=== PATIENT | female | born 1935 | race African-American/Black ===

== ENCOUNTER 2021-01-04 15:12 | Outpatient (CLI) | payer MEDICARE ==
[2021-01-08 16:38] LABS: Vitamin D, 25-OH, D2 <4 ng/mL
== END 2021-01-04 15:13 | disposition home or self-care (01) ==
LOC: LAB 15:12
PROVIDERS: ATTEND Specialist
DX: F02.81 Dementia in other diseases classified elsewhere, unspecified severity, with behavioral disturbance (principal); G93.41 Metabolic encephalopathy; E07.9 Disorder of thyroid, unspecified
CPT/HCPCS: 36415; 82306; 82607; 83921; 84443; 86592